=== PATIENT | male | born 1970 | race Caucasian/White ===

== ENCOUNTER 2020-12-22 18:52 | Emergency (ER) | payer OTHER ==
[~2020-12-22 18:52] MED LIST: AUGMENTIN 875-1 EACH PO; CYCLOBENZAPRINE10 MG PO; DEPADE50 MG PO; DISULFIRAM250 MG PO; IBUPROFEN800 MG PO; MELADOX3 MG PO; NORCO 5-325 TA1 EACH PO; OMEPRAZOLE20 MG PO; ONDANSETRON ODT4 MG SL; SEROQUEL300 MG PO; WELLBUTRIN XL300 MG PO
--- NOTE | 2021-01-27 14:52 | EKG ---
[facility] [address] [place], [place] [address] Signed Sinus tachycardia Right atrial enlargement Borderline ECG No previous ECGs available Confirmed by RITA TAN DO ([id number]) on 01/27/2021 2:52:04 PM Electronically Signed By: RITA TAN DO 01/27/21 1452 PATIENT NAME: DARIO OVALLES NEVIN Electrocardiogram DATE OF : 74 PHYSICIAN: RITA TAN DO REPORT #: [id number] REPORT IS CONFIDENTIAL AND NOT TO BE RELEASED WITHOUT AUTHORIZATION
== END 2020-12-23 00:18 | disposition short-term general hospital (02) ==
LOC: ED 18:52 → EDBD 18:53 → ED 18:53
DX: T71.161A Asphyxiation due to hanging, accidental, initial encounter (principal); G93.1 Anoxic brain damage, not elsewhere classified; E87.6 Hypokalemia; F10.129 Alcohol abuse with intoxication, unspecified; R74.02 Elevation of levels of lactic acid dehydrogenase [LDH]; Y90.6 Blood alcohol level of 120-199 mg/100 ml; Z20.822 Contact with and (suspected) exposure to COVID-19
CPT/HCPCS: 31500; 36600; 70450; 70498; 71045; 72125; 80053; 81001; 82150; 82553; 82803; 83605; 83690; 84484; 85025; 86850; 86900; 86901; 93005; 93010; 94002; 99285-25; C9803; G0480; J0330; J3010; J3480; J7030; U0003